=== PATIENT | female | born 1975 | race Caucasian/White ===

== ENCOUNTER 2016-12-15 13:43 | Emergency (ER) | payer OTHER ==
[~2016-12-15] VITALS: Ht 157.5 cm; Wt 58.2 kg
[2016-12-15] MEDS ORDERED: SODIUM CHLORIDE 0.9% 1,000 ML IV ONE (14:47)
[2016-12-15] MEDS ORDERED: FEXO1TAB29 PO (14:53)
[2016-12-15] MEDS ORDERED: ASPI1TAB2 PO (14:53)
[2016-12-15] MEDS ORDERED: SODIUM CHLORIDE FLUSH 10ML SYR IVF ONE (15:00)
[2016-12-15 15:24] LABS: HEMOGLOBIN 16.7 g/dL (11.7-16.4); WHITE BLOOD COUNT 10.1 x10^3/uL (3.4-10)
[2016-12-15 15:38] LABS: BLOOD UREA NITROGEN 11 mg/dL (7-18)
[2016-12-15 15:43] LABS: ASPARTATE AMINO TRANSFERASE 16 U/L (15-37)
[2016-12-15 17:01] VITALS: BP 138/96
[2016-12-15] MEDS ORDERED: OMNIPAQUE 350 MG/ML, 100ML BOTTLE ONE (18:18)
== END 2016-12-15 17:04 | disposition home or self-care (01) ==
LOC: ED 16:58
DX: R10.11 Right upper quadrant pain (principal); R10.13 Epigastric pain
CPT/HCPCS: 36415; 74177; 80053; 81003; 83690; 84703; 85025; 96360; 96361; 99285; J7030; Q9967

== ENCOUNTER 2018-10-27 12:05 | Emergency (ER) | payer OTHER ==
[~2018-10-27] VITALS: Ht 157.5 cm; Wt 64.2 kg
[~2018-10-27 12:05] MED LIST: ASPI-691 PO; FEXO1TAB29 PO
[2018-10-27 12:17] VITALS: BP 161/85
[2018-10-27] MEDS ORDERED: LIDOCAINE-MPF 1%, 5ML ONE (12:38)
--- NOTE | 2018-10-27 12:45 | NUR ---
Pt arrives to ed s/p dog bite to right hand by unknown dog, pt reprots she was treated with abx at urgent care and got a tdap update. However she now has alot of brusing around puncture site and has a hematoma on the top of her hand about an inch in diameter. Pt reports painful to touch. Pt does have good cap refill and cms intact to hand. Pt has no red streaking or s/sx increasing infection. Pt has ID procedure supplies at bedside. Awaiting further orders at this time.
[2018-10-27] MEDS ORDERED: LIDOCAINE-MPF 1%, 5ML INFIL ONE (13:00)
--- NOTE | 2018-10-27 13:02 | NUR ---
JOMAR LOU AT BEDSIDE PERFORMING ID AT THIS TIME.
--- NOTE | 2018-10-27 13:16 | NUR ---
Patient/Caregiver given discharge instructions and they have confirmed that they understand the instructions. Patient ambulatory with steady gait.
== END 2018-10-27 13:28 | disposition home or self-care (01) ==
LOC: ED 13:17
DX: S60.222A Contusion of left hand, initial encounter (principal); L02.512 Cutaneous abscess of left hand; Z87.891 Personal history of nicotine dependence; W54.0XXA Bitten by dog, initial encounter; Y93.89 Activity, other specified; Y92.488 Other paved roadways as the place of occurrence of the external cause; Y99.8 Other external cause status
CPT/HCPCS: 10060; 99283

== ENCOUNTER 2019-12-02 13:31 | Emergency (ER) | payer OTHER ==
[~2019-12-02] VITALS: Ht 157.5 cm; Wt 65.8 kg
[2019-12-02] MEDS ORDERED: ONDANSETRON 2MG/ML, 2ML ONE ×2 (14:25→17:13)
[2019-12-02] MEDS ORDERED: MORPHINE SULFATE 4 MG/ML, 1ML ONE (14:25)
[2019-12-02] MEDS ORDERED: SODIUM CHLORIDE FLUSH 10ML SYR IVF ONE (14:30)
[2019-12-02] MEDS ORDERED: ONDANSETRON 2MG/ML, 2ML IVPush ONE ×2 (14:30→17:30)
[2019-12-02 14:38] LABS: ALANINE AMINOTRANSFERASE 41 U/L (12-78); ANION GAP 5 mmol/L (5-15); CALCIUM 9.1 mg/dL (8.5-10.1); CHLORIDE 106 mmol/L (98-107); CREATININE 0.81 mg/dL (0.55-1.02)
[2019-12-02 14:40] LABS: ALKALINE PHOSPHATASE 62 U/L (45-117); BASOPHILS # (AUTO) 0.03 x10^3/uL (0-0.1); BASOPHILS % (AUTO) 0 % (0-1); BILIRUBIN,TOTAL 0.2 mg/dL (0.2-1.0); EOSINOPHILS # (AUTO) 0.17 x10^3/uL (0-0.4); EOSINOPHILS % (AUTO) 1 % (1-7); LYMPHOCYTES # (AUTO) 1.53 x10^3/uL (1-3.4); LYMPHOCYTES % (AUTO) 11 % (22-44); MD NO; MEAN CORPUSCULAR HEMOGLOBIN 31.4 pg (27.0-34.8); MEAN CORPUSCULAR HGB CONC 33.5 g/dL (32.4-35.8); MEAN CORPUSCULAR VOLUME 93.7 fL (80-100); MONOCYTES # (AUTO) 0.34 x10^3/uL (0.2-0.8); MONOCYTES % (AUTO) 2 % (2-9); NEUTROPHILS # (AUTO) 12.41 x10^3/uL (1.8-6.8); NEUTROPHILS % (AUTO) 86 % (42-75); PLATELET COUNT 341 x10^3/uL (130-400); RED BLOOD COUNT 5.06 x10^6/uL (3.82-5.3); RED CELL DISTRIBUTION WIDTH 12.3 % (9.6-15.2); TOTAL PROTEIN 7.8 g/dL (6.4-8.2)
[2019-12-02 14:55] LABS: HCG UR SG 1.024 (1.003-1.030)
[2019-12-02 15:03] LABS: MICROSCOPIC INDICATED
[2019-12-02] MEDS ORDERED: HYDROmorphone 1 MG/ML, 1ML INJ ONE ×2 (15:38→16:37)
[2019-12-02] MEDS: HYDROmorphone 2 MG/ML, 1ML IVPush PRN ×2 (15:42→16:43)
[2019-12-02] MEDS ORDERED: ESTR-21 TD (15:52)
--- NOTE | 2019-12-02 16:50 | NUR ---
PT PLACED ON 2L 02 FOLLOWING PAIN PHOTOLITHOGRAPHIC STRIPPER. PT [id number].
[2019-12-02 16:53] VITALS: BP 125/74
== END 2019-12-02 17:50 | disposition home or self-care (01) ==
LOC: ED 15:07
DX: N23 Unspecified renal colic (principal); R31.9 Hematuria, unspecified; R11.0 Nausea
CPT/HCPCS: 36415; 74176; 80053; 81001; 81025; 85025; 87086; 96374; 96375; 96376; 99284; J1170; J2405